=== PATIENT | female | born 1990 | race Caucasian/White ===

== ENCOUNTER 2019-08-14 16:27 | Emergency (ER) | payer MEDICAID ==
[~2019-08-14] VITALS: Ht 167.6 cm; Wt 119.3 kg
[2019-08-14 16:32] VITALS: BP 127/59
--- NOTE | 2019-08-14 16:40 | NUR ---
Patient ambulated to bed 2. RN evaluating patient at bedside.
--- NOTE | 2019-08-14 16:45 | NUR ---
PT TO ED FOR RT INGORWN TOENAIL RECHECK. SEEN AT [facility] AND GIVE ORAL ABX WITH NO RELIEF. NO OBVIOUS DEFORMITY NOTED. MILD REDNESS NOTED TO SITE. PT IN BED FOR MD ALDRIDGE.
--- NOTE | 2019-08-14 16:50 | NUR ---
PA [place] evaluating patient at bedside.
[2019-08-14 17:17] VITALS: BP 127/59
--- NOTE | 2019-08-14 17:17 | NUR ---
Patient discharged with v/s stable. Written and verbal after care instructions given and explained. Patient verbalized understanding. Ambulatory with steady gait. All questions addressed prior to discharge. Advised to follow up with PMD.
== END 2019-08-14 17:17 | disposition home or self-care (01) ==
LOC: MED 16:27
DX: Z48.01 Encounter for change or removal of surgical wound dressing (principal)
CPT/HCPCS: 99281